=== PATIENT | male | born 1965 | race Caucasian/White ===

== ENCOUNTER 2023-06-28 06:28 | Observation (INO) | payer BC ==
[2023-06-28] MEDS ORDERED: Sodium Chloride 0.9% 100 ML ONE ×2 (07:23→09:48)
[2023-06-28] MEDS ORDERED: Vancomycin (BATCH) 1.5 GM/300 ML BAG ONE (07:23)
[2023-06-28] MEDS ORDERED: Tranexamic Acid 1,000 MG/10 ML VIAL ONE (07:23)
[2023-06-28] MEDS ORDERED: fentaNYL PF 100 MCG/2 ML SYRINGE ONE ×2 (08:46→11:42)
[2023-06-28] MEDS ORDERED: Midazolam HCl 2 mg/2 ml Vial ONE ×2 (08:46→09:21)
[2023-06-28] MEDS ORDERED: Bupivacaine PF 0.5% 30 ML VIAL ONE (08:47)
[2023-06-28] MEDS ORDERED: fentaNYL 50 mcg/mL 1 mL Vial SLOW IVP PRN (08:53)
[2023-06-28] MEDS ORDERED: Ondansetron PF 4 MG/2 ML Vial IVP PRN ×2 (09:00→11:30)
[2023-06-28] MEDS ORDERED: HYDROcodone/Acetaminophen 10/325 mg Tablet PO PRN ×2 (09:00)
[2023-06-28] MEDS ORDERED: Zolpidem Tartrate 5 MG TAB PO PRN ×2 (09:00→13:15)
[2023-06-28] MEDS ORDERED: traMADol HCl 50 MG TAB PO PRN ×2 (09:00)
[2023-06-28] MEDS ORDERED: Ropivacaine 0.2% 550 ML 550 ML NERVE BLCK SCH (09:00)
[2023-06-28] MEDS ORDERED: Promethazine HCl 25 MG/ML VIAL IM PRN ×3 (09:00→13:15)
[2023-06-28] MEDS ORDERED: fentaNYL 50 mcg/mL 1 mL Vial ONE ×3 (09:20→13:42)
[2023-06-28] MEDS ORDERED: EPINEPHrine 1 MG/ML VIAL ONE ×2 (09:22→09:24)
[2023-06-28] MEDS ORDERED: Bupivacaine 0.25% HCL 30 ML VIAL ONE ×2 (09:22→09:24)
[2023-06-28] MEDS ORDERED: PROPOFOL 200 MG/20 ML VIAL ONE (09:40)
[2023-06-28] MEDS ORDERED: Dexamethasone 20 MG/5 ML VIAL ONE (09:40)
[2023-06-28] MEDS ORDERED: Ondansetron PF 4 MG/2 ML Vial ONE ×2 (09:40→12:50)
[2023-06-28] MEDS ORDERED: CEFAZOLIN 2 GM VIAL ONE (09:48)
[2023-06-28] MEDS ORDERED: HYDROmorphone 2 MG/ML VIAL ONE (10:22)
[2023-06-28] MEDS ORDERED: Acetaminophen 325 MG TAB PO PRN (11:30)
[2023-06-28] MEDS ORDERED: diphenhydrAMINE 25 MG CAP PO PRN ×2 (11:30→13:15)
[2023-06-28] MEDS ORDERED: Ondansetron HCl/PF 4 MG/2 ML Vial IVP PRN (11:42)
[2023-06-28] MEDS ORDERED: HYDROmorphone 2 MG/ML VIAL SLOW IVP PRN (11:42)
[2023-06-28] MEDS ORDERED: Ketorolac Tromethamine 30 MG/ML VIAL IVP PRN (11:42)
[2023-06-28] MEDS ORDERED: HYDROmorphone 0.5 MG/0.5 ML SYRINGE ONE ×4 (11:51→12:32)
[2023-06-28] MEDS ORDERED: Ketorolac Tromethamine 30 MG/ML VIAL ONE (11:51)
[2023-06-28] MEDS ORDERED: Ketorolac Tromethamine 30 MG/ML VIAL IVP SCH (12:00)
[2023-06-28] MEDS ORDERED: HYDROmorphone/PF 10 MG in Sodium Chloride 0.9% 99 ML IVPB PRN (13:15)
[2023-06-28] MEDS ORDERED: diphenhydrAMINE 50 MG/ML VIAL IM/IV PRN (13:15)
[2023-06-28] MEDS ORDERED: Naloxone HCl 0.4 mg/ml Vial IV PRN (13:15)
[2023-06-28] MEDS: Sodium Chloride 0.9% 1,000 ML IV SCH (14:30)
[2023-06-28] MEDS: Ondansetron PF 4 MG/2 ML Vial IVP PRN ×2 (15:35→22:11)
[2023-06-28] MEDS ORDERED: Ondansetron ODT 4 MG TAB PO PRN (16:32)
[2023-06-28] MEDS ORDERED: Glucagon 1 MG/ML KIT IM PRN (16:32)
[2023-06-28] MEDS ORDERED: Dextrose 50% Abboject 50 ML SYRINGE SLOW IVP PRN (16:32)
[2023-06-28] MEDS ORDERED: Dextrose 5% in Water 1,000 ML IV PRN (16:32)
[2023-06-28] MEDS ORDERED: Lorazepam 1 MG TAB PO PRN (16:32)
[2023-06-28] MEDS ORDERED: Electrolyte Replacement Protocol 1 EACH FS SCH (16:45)
[2023-06-28 17:11] VITALS: BMI 40.1
[2023-06-28] MEDS: Insulin Regular 300 UNITS/3 ML VIAL SC PRN ×2 (18:21→22:14)
[2023-06-28] MEDS: Ketorolac Tromethamine 30 MG/ML VIAL IVP SCH ×2 (18:24→23:45)
[2023-06-28] MEDS: Acetaminophen 500 MG TAB PO SCH ×2 (18:25→23:46)
[2023-06-28] MEDS: CEFAZOLIN 2 GM in Sodium Chloride 0.9% 100 ML IVPB SCH (18:26)
[2023-06-28] MEDS ORDERED: Multivit, Therapeutic 1 TAB PO SCH (21:00)
[2023-06-28] MEDS ORDERED: Folic Acid 1 MG TAB PO SCH (21:00)
[2023-06-28] MEDS: Aspirin 81 mg Enteric Coated Tablet PO SCH (22:11)
[2023-06-29] MEDS: Sodium Chloride 0.9% 1,000 ML IV SCH ×2 (02:09→10:08)
[2023-06-29] MEDS: CEFAZOLIN 2 GM in Sodium Chloride 0.9% 100 ML IVPB SCH (02:10)
[2023-06-29 05:23] VITALS: TEMP 97.9
[2023-06-29] MEDS: Acetaminophen 500 MG TAB PO SCH (05:56)
[2023-06-29] MEDS: Ketorolac Tromethamine 30 MG/ML VIAL IVP SCH ×2 (05:59→12:19)
[2023-06-29 06:12] LABS: Hemoglobin 13.9 g/dL (14.0-18.0); Mean Corpuscular HGB CONC 34.8 g/dL (32.0-36.0); Mean Corpuscular Hemoglobin 35.6 pg (27.0-31.0); Mean Corpuscular Volume 102.6 fl (78.0-98.0); Mean Platelet Volume 10.6 fL (7.4-10.4); Platelet Count 222 10x3/uL (130-400); RBC Distribution Width 12.8 % (11.5-14.5); White Blood Cell (WBC) Count 17.1 10x3/uL (4.8-10.8)
[2023-06-29] MEDS ORDERED: Ferrous Gluconate 324 MG TAB PO SCH (08:00)
[2023-06-29 08:03] LABS: Anion Gap 13 mmol/L (10-20); BUN (Urea Nitrogen) 9 mg/dL (8.4-25.7); Calc. Creatinine Clearance 160 mL/min (70-130); Calcium 8.3 mg/dL (7.8-10.44); Carbon Dioxide 23 mmol/L (22-29); Chloride 99 mmol/L (98-107); Estimated GFR 101; Glucose 155 mg/dL (70-105); Potassium 3.4 mmol/L (3.5-5.1); Sodium 132 mmol/L (136-145)
[2023-06-29] MEDS ORDERED: dilTIAZem CD 180 MG CAP PO SCH (09:00)
[2023-06-29] MEDS ORDERED: Triamterene/Hydrochlorothiazide 37.5 mg/25 mg Tablet PO SCH (09:00)
[2023-06-29] MEDS ORDERED: Multivitamin W/ Minerals 1 TAB PO SCH (09:00)
[2023-06-29] MEDS ORDERED: Senokot S 8.6-50 MG TAB PO SCH (09:00)
[2023-06-29] MEDS ORDERED: Thiamine 100 MG TAB PO SCH (09:00)
[2023-06-29] MEDS ORDERED: Losartan 25 MG TAB PO SCH (09:00)
[2023-06-29] MEDS: Aspirin 81 mg Enteric Coated Tablet PO SCH (09:51)
[2023-06-29] MEDS ORDERED: HYDROcodone/Acetaminophen 10/325 mg Tablet PO PRN ×2 (11:51→11:52)
[2023-06-29] MEDS ORDERED: fentaNYL 50 mcg/mL 1 mL Vial SLOW IVP PRN (11:52)
[2023-06-29] MEDS: Insulin Regular 300 UNITS/3 ML VIAL SC PRN (12:19)
[2023-06-29 12:20] VITALS: BP 155/99
[2023-06-29] MEDS ORDERED: Potassium Chloride 20 MEQ TAB PO SCH (14:00)
[2023-06-29] MEDS ORDERED: Lorazepam 1 MG TAB PO PRN ×2 (14:18→16:32)
[2023-06-30] MEDS ORDERED: Lorazepam 1 MG TAB PO PRN ×2 (14:18→16:32)
[2023-07-01] MEDS ORDERED: FLU VACC QS2023-24(6MOS UP)/PF 60 MCG/0.5 ML SYRINGE IM ONE (09:00)
[2023-07-01] MEDS ORDERED: Lorazepam 1 MG TAB PO PRN (14:18)
[2023-07-01] MEDS ORDERED: Lorazepam 0.5 MG TAB PO PRN (16:32)
[2023-07-02] MEDS ORDERED: Lorazepam 0.5 MG TAB PO PRN (14:18)
== END 2023-06-29 13:55 | disposition home or self-care (01) ==
LOC: SDC 06:28 → SURG A 11:30
PROVIDERS: ADMIT Orthopaedic Surgery; ATTEND Orthopaedic Surgery
PROC: 0SRD0JZ Replacement of Left Knee Joint with Synthetic Substitute, Open Approach (ICD-10-PCS; principal; 2023-06-28)
DX: M17.12 Unilateral primary osteoarthritis, left knee (principal); I10 Essential (primary) hypertension; E11.9 Type 2 diabetes mellitus without complications; F10.90 Alcohol use, unspecified, uncomplicated; Z79.899 Other long term (current) drug therapy; Z88.8 Allergy status to other drugs, medicaments and biological substances
CPT/HCPCS: 36415; 36416; 80048; 85027; A4306; C1776; J0171; J1100; J1170; J1815; J1885; J2250; J2405; J2704; J2795; J3010; J3370; J3490; J7050; S0020

== ENCOUNTER 2023-07-01 09:50 | Observation (INO) | payer BC ==
[2023-07-01] MEDS ORDERED: Morphine 4 MG/ML VIAL ONE (10:58)
[2023-07-01] MEDS ORDERED: Ondansetron PF 4 MG/2 ML Vial ONE (10:58)
[2023-07-01 11:08] LABS: #Basophils 0.1 thou/uL (0.0-0.2); #Eosinphils 0.5 thou/uL (0.0-0.7); #Monocytes 1.1 thou/uL (0.11-0.59); #Neutrophils 8.5 thou/uL (1.40-6.50); %Basophils 0.9 % (0.0-1.0); %Eosinophils 3.2 % (0.0-10.0); %Monocytes 7.8 % (0.0-10.0); Hemoglobin 13.9 g/dL (14.0-18.0); Mean Corpuscular HGB CONC 34.8 g/dL (32.0-36.0); Mean Corpuscular Hemoglobin 35.6 pg (27.0-31.0); Mean Corpuscular Volume 102.6 fl (78.0-98.0); Mean Platelet Volume 11.3 fL (7.4-10.4); Platelet Count 231 10x3/uL (130-400); RBC Distribution Width 12.8 % (11.5-14.5); White Blood Cell (WBC) Count 13.9 10x3/uL (4.8-10.8)
[2023-07-01 11:38] LABS: ALT (SGPT) 18 U/L (8-55); AST (SGOT) 27 U/L (5-34); Albumin 3.7 g/dL (3.5-5.0); Alkaline Phosphatase 64 U/L (40-110); Anion Gap 15 mmol/L (10-20); BUN (Urea Nitrogen) 11 mg/dL (8.4-25.7); Bilirubin, Total 1.3 mg/dL (0.2-1.2); Calc. Creatinine Clearance 0 mL/min (70-130); Calcium 8.1 mg/dL (7.8-10.44); Carbon Dioxide 24 mmol/L (22-29); Estimated GFR 105; Globulin 3.1 g/dL (2.4-3.5); Glucose 95 mg/dL (70-105); Protein, Total 6.8 g/dL (6.0-8.3)
[2023-07-01 11:53] LABS: Chloride 99 mmol/L (98-107); Potassium 3.6 mmol/L (3.5-5.1); Sodium 134 mmol/L (136-145)
[2023-07-01] MEDS ORDERED: HYDROcodone/Acetaminophen 5/325 mg Tablet ONE (12:25)
[2023-07-01] MEDS ORDERED: HYDROmorphone 0.5 MG/0.5 ML SYRINGE ONE (14:55)
[2023-07-01] MEDS ORDERED: Ondansetron PF 4 MG/2 ML Vial IVP PRN (16:15)
[2023-07-01] MEDS ORDERED: Ondansetron ODT 4 MG TAB SL PRN (16:15)
[2023-07-01] MEDS ORDERED: Acetaminophen 325 MG TAB PO PRN (16:15)
[2023-07-01] MEDS ORDERED: Morphine 4 MG/ML VIAL SLOW IVP PRN (17:17)
[2023-07-01 18:13] VITALS: BMI 41.3
[2023-07-01] MEDS: Ketorolac Tromethamine 30 MG/ML VIAL IVP PRN (18:17)
[2023-07-01] MEDS: HYDROcodone/Acetaminophen 10/325 mg Tablet PO PRN (22:04)
[2023-07-02] MEDS: Ketorolac Tromethamine 30 MG/ML VIAL IVP PRN (05:44)
[2023-07-02 08:19] VITALS: TEMP 97.8
[2023-07-02 12:19] VITALS: BP 136/86
[2023-07-02] MEDS: HYDROcodone/Acetaminophen 10/325 mg Tablet PO PRN (13:31)
== END 2023-07-02 14:16 | disposition home or self-care (01) ==
LOC: ERS 09:50 → T4-B 16:24
PROVIDERS: ADMIT Orthopaedic Surgery; ATTEND Orthopaedic Surgery
DX: M25.562 Pain in left knee (principal); Z96.652 Presence of left artificial knee joint
CPT/HCPCS: 36416; 80053; 83605; 85025; 96374; 96375; 96376; G0378; J1170; J1885; J2270; J2405